=== PATIENT | female | born 1940 | race Caucasian/White ===

== ENCOUNTER 2016-09-18 05:54 | Inpatient (IN) | payer MEDICARE ==
--- NOTE | ~2016-09-18 | CN ---
Consultation Report [facility] [address] [place]. [address] NAME: JEM PEREZ : 42 STATUS : ADM Abhijit PAT#: [id number] AGE: 75 ADM/REG DATE : 09/18/16 MR#: [id number] REPORT SERV DATE: 09/18/16 DICTATED BY: SANDRINE ROSARIO DATE: 09/18/16 REPORT STATUS : Draft TRANSCRIBED BY: MODL DATE: 09/18/16 CARDIOLOGY CONSULTATION DATE OF CONSULTATION: 09/18/2016 REASON FOR CONSULTATION: Elevated troponin and chest pain. HISTORY OF PRESENT ILLNESS: The patient is a 75-year-old female with known coronary artery disease with known chronic total occlusion of the right coronary artery and distal LAD. This has been managed medically for quite some time. The patient initially presented with complaints of dyspnea and substernal chest discomfort. She reports, mild chest discomfort. She reports, she took two nitroglycerin sublingually with resolution of her chest pain symptoms. She had no recurrence of the chest pain since that time. Initially, treated with BiPAP for respiratory failure. The patient is currently undergoing dialysis. She reports that, she has had an increase in dry weight over the last several dialysis sessions due to shortened sessions, due to hypotension. She denies any chest pain over the last several days to weeks. Since her episode of chest discomfort last night, she has had no recurrent chest pain. Serial troponin, 0.59 and 0.47. The patient is moderately active at home on non dialysis days and reports no chest pain with that level of activity. She is currently resting comfortably in the dialysis unit, nasal cannula oxygen undergoing, active hemodialysis without symptoms. PAST MEDICAL HISTORY: 1. Coronary artery disease with most recent cardiac catheterization on 12/17/2014, demonstrated chronic total occlusion of the right coronary artery with occluded distal LAD. 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 2. End-stage renal disease, on hemodialysis. 3. Carotid artery disease - status post left carotid endarterectomy, 11/2012. 4. Ischemic cardiomyopathy with ejection fraction of 30% by echo, 08/31/2015. 5. History of peripheral vascular disease. 6. History of rhabdomyolysis secondary to Zocor. 7. History of cerebrovascular accident. 8. Hypertension. 9. COPD. REVIEW OF SYSTEMS: Negative for all organ systems except per the history of present illness. FAMILY HISTORY: Noncontributory. ALLERGIES: STATINS WITH RHABDOMYOLYSIS AND RENAL FAILURE. HOME MEDICATIONS: Albuterol metered dose inhaler two puffs q.4 hours p.r.n., amlodipine 5 mg b.i.d. every Saturday, Saturday, Saturday, Saturday (non dialysis days), amlodipine 5 mg daily on Consultation Report [address] [id number] NAME: JEM PEREZ : 42 STATUS : ADM Abhijit PAT#: [id number] AGE: 75 ADM/REG DATE : 09/18/16 MR#: [id number] REPORT SERV DATE: 09/18/16 DICTATED BY: SANDRINE ROSARIO DATE: 09/18/16 REPORT STATUS : Draft TRANSCRIBED BY: MANSOOR DATE: 09/18/16 dialysis days (Saturday, , and Saturday), aspirin 81 mg daily, carvedilol 25 mg b.i.d. on non dialysis days and 25 mg at bedtime on dialysis days, Plavix 75 mg daily, Coenzyme Q10 100 mg daily, losartan 50 mg daily, multivitamin with minerals daily, sublingual nitroglycerin 0.4 mg p.r.n. for chest pain, vitamin C, nlmj-cql-mixhjmz garlic supplement and gzfs-tal-rosnhah iron supplement. PHYSICAL EXAMINATION: VITALS: Blood pressure 155/66, pulse 77, respirations 16 and unlabored, saturating 99% on room air, weight 53 kg. GENERAL: Petite elderly female, in no acute distress. HEENT: Normal. NECK: Supple, no JVD or bruit, normal carotid upstroke bilaterally, no thyromegaly. CHEST: Port catheter was noted in the left infraclavicular region, currently undergoing hemodialysis. LUNGS: Clear to auscultation and percussion. No wheezes, rales or rhonchi. No use of accessory muscles. CARDIOLOGY: Regular rhythm, normal S1, S2, no thrill, no murmur, rubs or gallops, normal PMI. ABDOMEN: Bowel sounds positive, soft, nontender, and nondistended. No masses or aortic bruits. No hepatosplenomegaly or hepatojugular reflux. EXTREMITIES: No edema. Normal pulses. No clubbing or cyanosis. SKIN: Warm and dry, no significant rash. NEUROLOGIC: Alert and oriented x3. Appropriate mood. IMAGING: EKG: Poor quality EKG. Sinus rhythm. Left ventricular hypertrophy with repolarization abnormality. EKG unchanged from EKG of 04/09/2016. IMPRESSION: 1. Volume overload-likely multifactorial. Known depressed ejection fraction from ischemic cardiomyopathy and reportedly decreased dialysis times over the last several weeks due to hypotension during dialysis sessions. Medications have been adjusted to attempt to prevent the same in the interim. 2. Demand related/type 2 myocardial infarction - the patient is asymptomatic. Troponin elevation is likely related to increased demand, known coronary artery disease in the setting of increased intravascular volume and respiratory distress. The patient currently dialyzing and stable. Given known coronary anatomy and absence of continued symptoms, I see no indication for cardiac catheterization at this time. We will continue the patient's current cardiac medical therapy. Thank you for the opportunity to see the patient in consultation. We will continue to follow the patient with you. If third troponin is unremarkably change, then we will plan to sign off. For any further questions, please feel free to contact me. Consultation Report [address] [address] NAME: JEM PEREZ : 42 STATUS : ADM Abhijit PAT#: [id number] AGE: 75 ADM/REG DATE : 09/18/16 MR#: [id number] REPORT SERV DATE: 09/18/16 DICTATED BY: SANDRINE ROSARIO DATE: 09/18/16 REPORT STATUS : Draft TRANSCRIBED BY: MODNila DATE: 09/18/16 CSNila/MANSOOR Tk Rosario M.D. / [id number] CC: MD Shawnee Francisco M.D.
--- NOTE | ~2016-09-18 | HP ---
History And Physical [id number] [place]. [address] NAME: JEM HERNÁNDEZ : 42 STATUS : ADM Abhijit PAT#: [id number] AGE: 75 ADM/REG DATE : 09/18/16 MR#: [id number] REPORT SERV DATE: 09/18/16 DICTATED BY: ERICKSON MANUEL DATE: 09/18/16 REPORT STATUS : Draft TRANSCRIBED BY: MODL DATE: 09/18/16 DATE OF ADMISSION: 09/18/2016 HISTORY OF PRESENT ILLNESS: Ms. Hernández is a 75-year-old white female, admitted for shortness of breath, positive troponins, transferred here from [facility] Emergency Room for hemodialysis assistance. She has advanced atherosclerotic cardiovascular disease with bilateral carotid endarterectomies after strokes, coronary artery disease, status post angioplasty and stents, peripheral vascular disease, and bilateral renal artery stenosis, which led to end-stage renal disease, which she is on dialysis on Saturday, , Saturday at [facility], chronic hypertension, hyperlipidemia, COPD, gastroesophageal reflux, and anxiety/depression. REVIEW OF SYSTEMS: [place] some pressure over the last night, no pain, went to the emergency room because of shortness of breath, and found there to be hypoxic as well as volume overloaded and positive troponin, transferred to [facility]. She admits to probably taken in too much fluid over the weekend. We will ultrafilter on dialysis this morning. I have asked Cardiology to see, they have had evaluation of her numerous times and was deemed not a surgical candidate in the past. PHYSICAL EXAMINATION: VITAL SIGNS: Reveals a blood pressure of 162/70, heart rate 67, respirations 20, temperature 97.6, on BiPAP. LUNGS: Clear anteriorly. CARDIOVASCULAR: Without rub. ABDOMEN: Soft, benign. Bowel sounds present. Nontender. No bruits. EXTREMITIES: No edema. NEUROLOGICAL: Intact grossly. Did not ambulate the patient. The patient is on BiPAP, hard to communicate with her. LABORATORY DATA: Shows blood gas, pH 7.37, pCO2 36, PO2 92, 35% FiO2. White count 12.6, hemoglobin 11, hematocrit 36, platelet count 237,000. Sodium 142, potassium 5.2, chloride 106, CO2 22 with a BUN of 70, creatinine 6.99, blood sugar 134, calcium 9.1, magnesium 2.2. INR 1.1. Troponin was initially 0.56, repeat 0.59, we will repeat another one prior to dialysis. Chest x-ray showed mild pulmonary edema, double-lumen catheter in place. ASSESSMENT: 1. Volume overload picture and the patient known to have severe coronary artery disease, an ejection fraction of 30%, elevated troponins noted. Cardiology consulted. Suspect [id number]-[id number] myocardial infarction or stress, troponin leak. Cardiology to evaluate. 2. End-stage renal disease, on hemodialysis Saturday, , Saturday. We will ultrafilter today. 3. Atherosclerotic cardiovascular disease, diffuse with carotid, peripheral, coronary, renal artery stenosis, history of strokes. 4. Hypertension. History And Physical [address] [address] NAME: JEM HERNÁNDEZ : 42 STATUS : ADM Abhijit PAT#: [id number] AGE: 75 ADM/REG DATE : 09/18/16 MR#: [id number] REPORT SERV DATE: 09/18/16 DICTATED BY: ERICKSON MANUEL DATE: 09/18/16 REPORT STATUS : Draft TRANSCRIBED BY: MANSOOR DATE: 09/18/16 5. Chronic obstructive pulmonary disease. 6. Hyperlipidemia. 7. Congestive heart failure with ejection fraction of 30%, chronic systolic heart failure. 8. Anemia of chronic kidney disease. PLAN: Cardiology to evaluate. Hemodialysis this morning and we will hopefully be able to relieve her symptoms and discharge soon. She dialyzes at [facility]. FRANCIE/MANSOOR Erickson Manuel M.D. / [id number] CC: Julio César Roth MD
[~2016-09-18 05:54] MED LIST: *UNABLE1; ADALAT CC90 MG PO; ALBUTEROL INH; APRES25 PO; ARANESP; ARANESP IM; ARANESP100 IV; ASAB PO; ATROVENTUD INH; ATV.5 PO; BETA-CAROTENE PO; BUM2 PO; CALMOSEPTINE O2.5 OZ TOP; CENTRUM PO; CENTRUM TAB1 TAB PO; CO Q-10 OTC PO; COENZYME Q10 PO; COREG PO; COREG25 PO; CORICIDIN HBP PO; COZ50 PO; DEMA20 PO; DIOV80 PO; EUCERIN CREAM TOP; FERROUS SULF325 M1 PO; GARLIC PO; GERI-LANTA PO; IMDUR30 PO; ISORDIL10 PO; L40 PO; LEVAQUIN750 MG PO; LORTAB 5 PO; LOSARTAN; MAGOX4 PO; MELA3 PO; MELATONIN CR3 MG PO; MELATONIN PO; MONOKET PO; MUCINEX1200 MG PO; MUCINEX600 MG PO; MULTIPLE VIT PO; MULTIVIT/MIN PO; MULTIVITAMI1 PO; NIFEDIAC CC90 MG PO; NITROSTAT0.4 MG SL; NORCO1 TA1 PO; NORV5 PO; NXL9 PO; ORGAN-I NR200 MG PO; P10 PO; PLAVIX PO; PRILOSEC40 MG PO; PROAIR HFA INH; PROTONIX PO; PROVENTSOL INH; SENTAB PO; SPIRO25 PO; SPIRO50 PO; T PO; VITAMIN C100 M1 PO; VITAMINS/SUPPLEMENTS PO; VITC500 PO; ZINC220C PO; ZOFRAN4 SL; [UNRECOGNIZED DRUG - OTHER] TOP; [UNRECOGNIZED DRUG - REMARK] PO
[2016-09-18 06:51] LABS: BE (BASE EXCESS) -4.1 MEQ/L (0 +/- 2.5); HCO3 (ACTUAL BICARBONATE) 20.5 MEQ/L (23-27); HEMOBLOGIN CONTENT 12.3 G/DL (12-16); INSTRUMENT SERIAL # 11843; METHEMOGLOBIN 0.3 % (0-3); O2 CONTENT 16.5 VOL% (18-24); PCO2 (CO2 TENSION) 36 MMHG (35-45); PO2 (O2 TENSION) 92 MMHG (79-93); SAMPLE Arterial; pH 7.37 (7.37-7.43)
[2016-09-19 04:42] LABS: BASOPHILS 0 %; EOSINOPHILS 0.1 %; EOSINOPHILS ABSOLUTE 0.01 10/3/uL (0.0-0.53); HEMATOCRIT 34.5 % (36.0-48.0); HEMOGLOBIN 11.3 g/dL (12.0-16.0); IMMATURE GRANULOCYTES 0.3 %; IMMATURE GRANULOCYTES ABSOLUTE 0.02 10/3/uL (0.0-0.11); LYMPHOCYTES 9.4 %; LYMPHOCYTES ABSOLUTE 0.72 10/3/uL (0.67-4.30); MEAN CORPUS HGB CONC 32.8 g/dL (32.0-36.0); MEAN CORPUSCULAR HEMOGLOB 33.8 pg (26.0-34.0); MEAN CORPUSCULAR VOLUME 103.3 fL (80-100); MEAN PLATELET VOLUME 11.1 fL (9.2-13.0); MONOCYTES 8.2 %; MONOCYTES ABSOLUTE 0.63 10/3/uL (0.21-1.20); NEUTROPHILS ABSOLUTE 6.31 10/3/uL (2.02-8.40); PLATELET COUNT 167 10/3/uL (150-400); RBC DISTRIBUTION WIDTH 15.8 % (12.0-16.0); RED CELL COUNT 3.34 10/6/uL (4.0-5.6); WHITE BLOOD CELLS 7.7 10/3/uL (4.5-10.5)
[2016-09-19 04:43] LABS: MANUAL DIFF NO %
[2016-09-19 05:14] LABS: ALBUMIN 3.5 G/DL (3.5-5.0); CALCIUM, SERUM 9.6 MG/DL (8.5-10.4); CHLORIDE, SERUM 104 MMOL/L (96-112); CO2 (CARBON DIOXIDE) 26 MMOL/L (24-34); GFR AFRICAN AMERICAN 9 ML/MIN (>=60); GFR NON AFRICAN AMERICAN 8 ML/MIN (>=60); GLUCOSE, SERUM 118 MG/DL (60-99); PHOSPHORUS, SERUM 4.5 MG/DL (2.5-4.5); POTASSIUM, SERUM 4.8 MMOL/L (3.5-5.3); SODIUM, SERUM 140 MMOL/L (135-148)
[2016-09-19 05:17] LABS: BUN (BLOOD UREA NITROGEN) 45 MG/DL (6-23)
[2016-09-19] MEDS ORDERED: SPIRO25 PO (11:26)
[2016-09-19] MEDS ORDERED: GARLIC SUPPLEMENT PO (11:38)
[2016-09-19] MEDS ORDERED: NORV5 PO ×2 (11:38)
[2016-09-19] MEDS ORDERED: ASAB PO (11:38)
[2016-09-19] MEDS ORDERED: COZ50 PO (11:38)
[2016-09-19] MEDS ORDERED: VITAMIN C OTC PO (11:38)
[2016-09-19] MEDS ORDERED: CO Q-10100 MG (11:38)
[2016-09-19] MEDS ORDERED: NITROSTAT0.4 MG SL (11:38)
[2016-09-19] MEDS ORDERED: COREG25 PO ×2 (11:38)
[2016-09-19] MEDS ORDERED: VENTOLIN HFA INH (11:38)
[2016-09-19] MEDS ORDERED: PLAVIX PO (11:38)
[2016-09-19] MEDS ORDERED: IRON SUPPLEMENT OTC PO (11:38)
[2016-09-20 07:55] LABS: BASOPHILS 0.3 %; BASOPHILS ABSOLUTE 0.02 10/3/uL (0.0-0.16); EOSINOPHILS 3.6 %; EOSINOPHILS ABSOLUTE 0.26 10/3/uL (0.0-0.53); HEMATOCRIT 33.8 % (36.0-48.0); HEMOGLOBIN 10.9 g/dL (12.0-16.0); IMMATURE GRANULOCYTES 0.3 %; IMMATURE GRANULOCYTES ABSOLUTE 0.02 10/3/uL (0.0-0.11); LYMPHOCYTES 28.3 %; LYMPHOCYTES ABSOLUTE 2.02 10/3/uL (0.67-4.30); MEAN CORPUS HGB CONC 32.2 g/dL (32.0-36.0); MEAN CORPUSCULAR HEMOGLOB 33.3 pg (26.0-34.0); MEAN CORPUSCULAR VOLUME 103.4 fL (80-100); MEAN PLATELET VOLUME 11.3 fL (9.2-13.0); MONOCYTES 9.7 %; MONOCYTES ABSOLUTE 0.69 10/3/uL (0.21-1.20); NEUTROPHILS 57.8 %; NEUTROPHILS ABSOLUTE 4.14 10/3/uL (2.02-8.40); PLATELET COUNT 167 10/3/uL (150-400); RBC DISTRIBUTION WIDTH 15.9 % (12.0-16.0); RED CELL COUNT 3.27 10/6/uL (4.0-5.6); WHITE BLOOD CELLS 7.2 10/3/uL (4.5-10.5)
[2016-09-20 08:00] LABS: MANUAL DIFF NO %
[2016-09-20 08:06] LABS: ALBUMIN 3.1 G/DL (3.5-5.0); CALCIUM, SERUM 8.9 MG/DL (8.5-10.4); CHLORIDE, SERUM 104 MMOL/L (96-112); CO2 (CARBON DIOXIDE) 24 MMOL/L (24-34); PHOSPHORUS, SERUM 5.2 MG/DL (2.5-4.5); POTASSIUM, SERUM 4.7 MMOL/L (3.5-5.3); SODIUM, SERUM 140 MMOL/L (135-148)
[2016-09-20 08:07] LABS: BUN (BLOOD UREA NITROGEN) 83 MG/DL (6-23); CREATININE 6.37 MG/DL (0.55-1.02); GFR AFRICAN AMERICAN 7 ML/MIN (>=60); GFR NON AFRICAN AMERICAN 6 ML/MIN (>=60); GLUCOSE, SERUM 83 MG/DL (60-99)
[2016-09-30] MEDS ORDERED: CENTRUM PO (13:25)
== END 2016-09-20 15:42 | disposition home or self-care (01) | DRG 189 ==
LOC: MIC 05:54
PROVIDERS: Internal Medicine Nephrology
PROC: 5A1D60Z (ICD-10-PCS; principal; 2016-09-18)
DX: J96.01 Acute respiratory failure with hypoxia (principal); I13.2 Hypertensive heart and chronic kidney disease with heart failure and with stage 5 chronic kidney disease, or end stage renal disease; N18.6 End stage renal disease; M62.82 Rhabdomyolysis; I50.32 Chronic diastolic (congestive) heart failure; I25.5 Ischemic cardiomyopathy; E87.70 Fluid overload, unspecified; I25.10 Atherosclerotic heart disease of native coronary artery without angina pectoris; I73.9 Peripheral vascular disease, unspecified; J44.9 Chronic obstructive pulmonary disease, unspecified; E78.5 Hyperlipidemia, unspecified; D63.1 Anemia in chronic kidney disease; I25.2 Old myocardial infarction; Z99.2 Dependence on renal dialysis; Z86.73 Personal history of transient ischemic attack (TIA), and cerebral infarction without residual deficits; Z88.8 Allergy status to other drugs, medicaments and biological substances; Z79.82 Long term (current) use of aspirin; Z79.899 Other long term (current) drug therapy; Z79.02 Long term (current) use of antithrombotics/antiplatelets; F17.210 Nicotine dependence, cigarettes, uncomplicated
CPT/HCPCS: 36600; 71010; 80048; 80069; 82805; 83735; 84484; 85025; 85610; 85730; 87040; 93005; 94640; 94660; 96374; 99291; A9270-GY; G0257; J2930; J2997; P9047

== ENCOUNTER 2016-09-30 17:00 | Inpatient (IN) | payer MEDICARE ==
--- NOTE | ~2016-09-30 | CN ---
Consultation Report [facility] [address] [place]. 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 She has some degree of volume overload, as well, due to her chronic kidney disease for which she is on hemodialysis regimen. Besides her surgeries for AV fistulas that were nonfunctional, she has had catheter placement for dialysis. Other surgeries included bilateral carotid endarterectomies. She has known coronary artery disease, but no stenting or bypass grafting, and sees Dr. Mansfield as her primary care provider. She has no chest pain, but her troponin is elevated at 2.61 x 1. Her EKG shows incomplete left bundle branch block with associated ST-T wave changes. She is in sinus rhythm. Her saturation at home was 88%, and she has been actively wheezing. Her BUN is 69 with a creatinine of 8.8; she missed her dialysis yesterday. Potassium 5.0. Platelet count 203,000, white blood cell count 11,800, and hematocrit 54%. Her B-type natriuretic peptide is over 5000. She has a history of hypertension, but not known to be diabetic. FAMILY HISTORY: Positive for heart disease. ALLERGIES: SHE IS INTOLERANT TO STATIN AGENTS. SOCIAL HISTORY: This lady is a and has four healthy children. HOME MEDICATIONS: Multiple, as would be expected including Coenzyme Q10, losartan, multivitamins, spironolactone, iron, and vitamin C. REVIEW OF SYSTEMS: At the present time, she is reasonably comfortable except for the active wheezing. She is not orthopneic or having chest pain. PHYSICAL EXAMINATION: VITAL SIGNS: Blood pressure is 120/70. HEENT: Head is normocephalic. Eyes are PERRLA. Nose had no epistaxis. SKIN: Clear of ulcerations. She is a thin person. NECK: Supple. There is no jugular venous distention. LUNGS: Have bilateral expiratory wheezing and some decrease in breath sounds compatible with her COPD with bronchospasm. HEART: Had regular rhythm. Normal S1, S2. I do not hear a definite murmur. ABDOMEN: Benign. Nontender. No hepatosplenomegaly or abnormal masses. EXTREMITIES: Had no clubbing, edema, or cyanosis. Consultation Report [address] [place]. [address] NAME: JEM PEREZ : 42 STATUS : ADM IN PAT#: [id number] AGE: 75 ADM/REG DATE : 09/30/16 MR#: [id number] REPORT SERV DATE: 09/30/16 DICTATED BY: PAVEL BUI DATE: 09/30/16 REPORT STATUS : Draft TRANSCRIBED BY: MANSOOR DATE: 09/30/16 NEUROLOGIC: Intact. Oriented to time, place, and person. CLINICAL IMPRESSIONS: 1. Chronic kidney disease - on hemodialysis with volume overload. 2. Elevated troponin - possibly a troponin type 2 spill; serial numbers are pending; no chest pain. 3. Status post carotid endarterectomies. 4. Chronic obstructive pulmonary disease with active bronchospasm. 5. Coronary artery disease. RECOMMENDATIONS: 1. We will obtain serial troponins and if is similar level, I would suspect this is a type 2 spill with multiple comorbidities with significant renal disease on hemodialysis, which can cause this type of elevation. 2. Bronchodilator regimen for her active wheezing. Further recommendations to follow clinical course. RB/MANSOOR Pavel Bui M.D. / [id number] CC: Iván Meneses M.D. UNKNOWN
--- NOTE | ~2016-09-30 | HP ---
History And Physical [address] [facility] [place]. [address] NAME: JEM PEREZ : 42 STATUS : ADM IN PAT#: [id number] AGE: 75 ADM/REG DATE : 09/30/16 MR#: [id number] REPORT SERV DATE: 10/01/16 DICTATED BY: DHAVAL CALVILLO DATE: 09/30/16 REPORT STATUS : Draft TRANSCRIBED BY: MODL DATE: 09/30/16 DATE OF ADMISSION: 09/30/2016 RENAL H AND P CHIEF COMPLAINT: Regarding end-stage renal disease. HISTORY OF PRESENT ILLNESS: A 75-year-old white female with end-stage renal disease, hemodialysis, Saturday, , Saturday at [facility], left upper extremity AV fistula; COPD, on home O2 with ongoing tobacco use; ischemic cardiomyopathy, EF of 30%; peripheral vascular disease who missed hemodialysis Saturday due to nausea and low back pain, who present to [facility] with hypoxia, leukocytosis, increased BNP, and pulmonary edema. The patient subsequently transferred to [facility]. She was also noted to have an elevated troponin of over 2. Cardiology was subsequently consulted as a result. The patient currently stable, feels better than upon initial presentation. Currently, on 6 L nasal cannula with 98% O2 sats. Denies any chest pain at this time. Minimal cough with chronic sputum production. PAST MEDICAL HISTORY: 1. End-stage renal disease. Hemodialysis Saturday, , Saturday at [facility], left arm AV fistula. 2. Ischemic cardiomyopathy, ejection fraction 30%. 3. COPD on O2 with ongoing tobacco use. 4. Hypertension. 5. Peripheral vascular disease with bilateral carotid endarterectomies. 6. History of CVA with left-sided numbness. 7. Anxiety. 8. Depression. MEDICATIONS ON ADMISSION: Include albuterol MDI; amlodipine 5 mg b.i.d. on nondialysis days and 5 mg on dialysis days; aspirin 81 mg daily; Coreg 25 mg b.i.d. on nondialysis days, 25 mg at bedtime on dialysis days; Plavix 75 mg daily; CoQ10; losartan 50 mg daily; multivitamin daily; Aldactone; sublingual nitroglycerin p.r.n.; iron sulfate; vitamin C over the-counter. ALLERGIES: INCLUDE STATINS CAUSES KIDNEYS TO SHUT DOWN. SOCIAL HISTORY: Lives alone. Has children who are active in her care. Her son is healthcare [id number]. Positive tobacco use, half a pack per day. No alcohol or illicit drug use. FAMILY HISTORY: No history of renal diseases other than grandmother with kidney disease, but no dialysis. REVIEW OF SYSTEMS: Negative except as mentioned in HPI. History And Physical [address] [place]. [address] NAME: JEM PEREZ : 42 STATUS : ADM IN PAT#: [id number] AGE: 75 ADM/REG DATE : 09/30/16 MR#: [id number] REPORT SERV DATE: 10/01/16 DICTATED BY: DHAVAL CALVILLO DATE: 09/30/16 REPORT STATUS : Draft TRANSCRIBED BY: MANSOOR DATE: 09/30/16 PHYSICAL EXAMINATION: VITAL SIGNS: Temperature is 97.7, blood pressure 140/64, pulse 67, respiratory rate is 18. GENERAL: Well-developed elderly white female in no acute distress. HEENT: Normocephalic and atraumatic. Pupils are equal, round, and reactive to light. Mucous membranes are moist. NECK: Supple. No thyromegaly. CARDIOVASCULAR: Regular rate and rhythm. No murmurs appreciated. RESPIRATORY: Bilateral wheezes with scattered rhonchi. Decreased breath sounds at bases. Normal respiratory effort. ABDOMEN: Soft, nontender, and nondistended. Positive bowel sounds. EXTREMITIES: No clubbing, cyanosis, with trace edema of the lower extremities bilaterally. Left upper extremity AV fistula, positive bruit and thrill. SKIN: No rashes or ulcerations appreciated. NEURO: Moves all extremities well. No focal deficits. Normal sensation in all extremities. PSYCH: Oriented x3 with normal affect. LABORATORY DATA: Sodium 140, potassium 4.0, chloride 101, bicarb 25, BUN 69, creatinine 8.8, glucose is 109, calcium is 9.4, magnesium is 2.3, phosphorus 5.2, and albumin is 3.1. BNP is greater than 5000. White count 11.8, 82 segs, 10 lymphs, 6 monos, hemoglobin is 10.7, and platelet count is 203. Troponin 2.61. ASSESSMENT AND PLAN: 1. End-stage renal disease. Hemodialysis at [facility]: Saturday, , Saturday; missed hemodialysis yesterday. Plans for hemodialysis first shift, Saturday. 2. Acute on chronic obstructive pulmonary disease exacerbation without any significant pulmonary reserve. Maintain O2 sats with oxygen. Check sputum culture, nebulize protocol steroids. Levaquin empirically for elevated white count and pulmonary eval. 3. Increased troponin, could be demand ischemia versus [id number] myocardial infarction. Appreciate Cardiology evaluation, currently on heparin drip. 4. Ischemic cardiomyopathy with EF of 30%. 5. History of peripheral vascular disease with cerebrovascular accident, left-sided numbness, and bilateral CEAs. 6. Prophylaxis SCDs. 7. Resume home medications. NCP/MODL Dhaval Calvillo M.D. / [id number] CC: Adrian Mansfield M.D.
[~2016-09-30 17:00] MED LIST changes: +CO Q-10100 MG; +GARLIC SUPPLEMENT PO; +IRON SUPPLEMENT OTC PO; +VENTOLIN HFA INH; +VITAMIN C OTC PO
[2016-10-01 13:59] LABS: BASOPHILS 0 %; EOSINOPHILS 0 %; HEMOGLOBIN 9.5 g/dL (12.0-16.0); IMMATURE GRANULOCYTES 0.3 %; IMMATURE GRANULOCYTES ABSOLUTE 0.03 10/3/uL (0.0-0.11); LYMPHOCYTES 4.6 %; LYMPHOCYTES ABSOLUTE 0.45 10/3/uL (0.67-4.30); MEAN CORPUSCULAR HEMOGLOB 33.9 pg (26.0-34.0); MEAN PLATELET VOLUME 11.8 fL (9.2-13.0); MONOCYTES 2.3 %; MONOCYTES ABSOLUTE 0.22 10/3/uL (0.21-1.20); NEUTROPHILS 92.8 %; NEUTROPHILS ABSOLUTE 9.01 10/3/uL (2.02-8.40); PLATELET COUNT 169 10/3/uL (150-400); WHITE BLOOD CELLS 9.7 10/3/uL (4.5-10.5)
[2016-10-01 14:02] LABS: HEMATOCRIT 28.1 % (36.0-48.0); MANUAL DIFF NO %; MEAN CORPUS HGB CONC 33.8 g/dL (32.0-36.0); MEAN CORPUSCULAR VOLUME 100.4 fL (80-100)
[2016-10-01 14:16] LABS: ALBUMIN 2.7 G/DL (3.5-5.0); BUN (BLOOD UREA NITROGEN) 93 MG/DL (6-23); CALCIUM, SERUM 8.5 MG/DL (8.5-10.4); CHLORIDE, SERUM 97 MMOL/L (96-112); CO2 (CARBON DIOXIDE) 23 MMOL/L (24-34); CREATININE 8.84 MG/DL (0.55-1.02); GFR AFRICAN AMERICAN 5 ML/MIN (>=60); GFR NON AFRICAN AMERICAN 4 ML/MIN (>=60); GLUCOSE, SERUM 116 MG/DL (60-99); PHOSPHORUS, SERUM 6.4 MG/DL (2.5-4.5); POTASSIUM, SERUM 5.6 MMOL/L (3.5-5.3); SODIUM, SERUM 137 MMOL/L (135-148)
[2016-10-02] MEDS ORDERED: P10 (17:01)
[2016-10-02] MEDS ORDERED: LEVAQUIN750 MG (17:02)
== END 2016-10-02 18:05 | disposition home or self-care (01) | DRG 291 ==
LOC: 2SO 17:00
PROVIDERS: Internal Medicine Nephrology
PROC: 5A1D60Z (ICD-10-PCS; principal; 2016-10-01)
DX: I13.2 Hypertensive heart and chronic kidney disease with heart failure and with stage 5 chronic kidney disease, or end stage renal disease (principal); J96.01 Acute respiratory failure with hypoxia; N18.6 End stage renal disease; I24.8 Other forms of acute ischemic heart disease; I69.354 Hemiplegia and hemiparesis following cerebral infarction affecting left non-dominant side; J44.1 Chronic obstructive pulmonary disease with (acute) exacerbation; I50.9 Heart failure, unspecified; E87.5 Hyperkalemia; Z99.81 Dependence on supplemental oxygen; I25.5 Ischemic cardiomyopathy; I73.9 Peripheral vascular disease, unspecified; F41.9 Anxiety disorder, unspecified; F32.9 Major depressive disorder, single episode, unspecified; I25.10 Atherosclerotic heart disease of native coronary artery without angina pectoris; J98.01 Acute bronchospasm; I44.7 Left bundle-branch block, unspecified; F17.210 Nicotine dependence, cigarettes, uncomplicated; R79.89 Other specified abnormal findings of blood chemistry; Z99.2 Dependence on renal dialysis; Z86.73 Personal history of transient ischemic attack (TIA), and cerebral infarction without residual deficits; Z82.49 Family history of ischemic heart disease and other diseases of the circulatory system; Z84.1 Family history of disorders of kidney and ureter; Z88.8 Allergy status to other drugs, medicaments and biological substances; Z91.15 Patient's noncompliance with renal dialysis; I25.2 Old myocardial infarction; Z79.82 Long term (current) use of aspirin; Z79.899 Other long term (current) drug therapy
CPT/HCPCS: 36600; 71020; 80048; 80069; 82805; 83735; 83880; 84484; 85025; 85610; 85730; 87070; 87205; 94640; 96365; 96366; 96375; 99291; A9270-GY; G0257; J0885; J1956; J2920; J2930; J2997

== ENCOUNTER 2016-10-09 06:40 | Inpatient (IN) | payer MEDICARE ==
--- NOTE | ~2016-10-09 | DS ---
Discharge Summary [facility] [address] [facility] [place]. [address] NAME: JEM PEREZ : 42 STATUS : DIS IN PAT#: [id number] AGE: 75 ADM/REG DATE : 10/10/16 MR#: [id number] REPORT SERV DATE: 10/24/16 DICTATED BY: KG MARIA JR DATE: 10/23/16 REPORT STATUS : Draft TRANSCRIBED BY: MANSOOR DATE: 10/23/16 Data Collection from hospitalization DISCHARGE DIAGNOSES: 1. Acute liver/transaminitis. 2. Hyperkalemia. 3. Pleural effusion. 4. Vascular congestion. 5. Positive shortness of breath. 6. Hyponatremia. 7. Positive anion gap metabolic acidosis. 8. Hyperphosphatemia. 9. Hypotension - Crestor dependent. 10.New thrombocytopenia. 11.Chronic obstructive pulmonary disease. 12.Inoperable atherosclerotic cardiovascular disease. 13.Recurrent/ongoing tobacco. 14.End-stage renal disease. 15.Hypoxemia. 16.Ischemic cardiomyopathy. 17.Peripheral vascular disease. 18.History of prior cerebrovascular accident with left-sided numbness. 19.Anxiety and depression. CONSULTATIONS: 1. Carlos Eduardo Padilla MD. 2. Mitra Herrera M.D. PROCEDURES PERFORMED: CTA of the chest on 10/10/2016. DISPOSITION: [facility]. HOSPITAL COURSE: This was a 75-year-old female who was brought to the hospital by EMS after complaining of dizziness. It was stated that in the field she was bradycardic and treated with atropine. She was chronically on a beta-addy as part of her known cardiovascular disease management. She had chronic trouble with low back pain, diagnosed elsewhere. She declined narcotic use because she does not like the way she feels taking the narcotics and she just deals with the pain. She said that she had an acute exacerbation of her chronic back pain on the day prior to this admission and thereafter she experienced some dizziness. She had end-stage renal disease. She was treated on Saturday, , and Saturday schedule. She was at the hospital a week prior to this admission and was treated for what appeared to be fluid overload, but we could not confirm that her dry weight was lowered nor that any of her antihypertensives were reduced at the time of her discharge. She had end- stage renal disease. In hospital, she was now hypotensive and bradycardic with a heart rate less than 60, but she was fully awake and alert, cooperative and was in no distress. She was admitted to the hospital for further evaluation and treatment. Upon admission, liver function tests were satisfactory. Troponin was found to be 0.5. It Discharge Summary [facility] [address] [facility] [address] NAME: JEM PEREZ : 42 STATUS : DIS IN PAT#: [id number] AGE: 75 ADM/REG DATE : 10/10/16 MR#: [id number] REPORT SERV DATE: 10/24/16 DICTATED BY: KG MARIA JR DATE: 10/23/16 REPORT STATUS : Draft TRANSCRIBED BY: MANSOOR DATE: 10/23/16 was felt that her hypotension was probably at least in part mediated by volume status and vasodilating blood pressure drugs and bradycardia. She had had prior long-term documentation of elevated BNP values. She was seen in consultation by Dr. Carlos Eduardo Padilla regarding back pain, symptomatic bradycardia, and hypotension in a patient with known ischemic cardiomyopathy. The patient reported that her lightheadedness had improved. She was on carvedilol at home at a relatively high dose. At this time, she denied any significant chest pain. She does have chronic dyspnea due to advanced chronic obstructive pulmonary disease, but reported that this was at baseline with no worsening of her chronic dyspnea. Carvedilol was going to be held at this time. It would most likely be restarted at a reduced dose. Her back pain had resolved at this time and it was felt this may have been related to her symptomatic hypotension. The patient's coronary angiogram was reviewed. She does in fact have very advanced coronary heart disease with poor targets for either percutaneous coronary intervention or coronary artery bypass graft surgery at the time of her last catheterization in late 2014. Provided that her symptoms remained stable, it was felt that the risk of repeat coronary angiography probably exceeds the benefit. If the patient does not exhibit hemodynamic or electrical instability or had symptoms suggestive of refractory angina, we would consider repeat coronary angiography. She was strongly encouraged to stop smoking due to her advanced chronic obstructive pulmonary disease and advanced coronary heart disease. She seemed to poorly motivated to do this, however. Orthostatic blood pressures were checked. On 10/10/2016, she remained short of breath. She was on BiPAP. Her heart rate had improved into the 60s-70s. A CTA of the chest was performed. Coumadin was on hold. Volume removal would be performed as tolerated with hemodialysis. Plavix was being held. She was seen by Dr. Mitra Herrera. She had been to see the patient regarding increasing shortness of breath and hypoxia. She did require BiPAP overnight. Her chest x-ray had shown cardiomegaly, small left pleural effusion, and pulmonary vascular congestion. Troponin was 0.054. Creatinine was 6.89 and potassium was 4.8. She never had a formal evaluation of her lung status, which at some point would probably have to be done once she was stabilized. We would continue bronchodilator protocol. She was again encouraged to stop smoking. Previous echocardiogram had shown ejection fraction of 30%. Repeat echocardiogram was requested. It was felt that the patient may be end stage on her pulmonary disease. It was felt that BiPAP may be something she could use at home, but we would need to further evaluate that after her volume status had stabilized and she was at baseline. The patient herself said she does not use oxygen and uses her rescue inhaler very infrequently. On 10/11/2016, dialysis therapy continued. Stool was found to be Hemoccult positive. Hypotension/bradycardia had resolved. Coreg had been stopped. Aggressive dialysis was going to be continued. BiPAP was to be used as needed. Blood pressure was under better control on Midrin. The next day, she felt much better. She had no complaints of dyspnea. Her spirits were good. We were going to reintroduce low-dose beta-addy. On 10/13/2016, she developed an acute new rhythm disturbance during hemodialysis. IV fluid bolus was given. EKG revealed atrial fibrillation with rapid ventricular response. She also had hyperkalemia. Hemodialysis therapy had been performed. She had no complaints of chest pain. A PICC line was inserted. Her shortness of breath was much improved. Chest x-ray showed bilateral pleural effusions. There was some improvement in her congestion. She complained of fatigue. She felt like her heart was pounding. She denied chest pain or shortness of breath. Esmolol drip was going to be started. Coreg had been restarted and Discharge Summary [address] [place]. [address] NAME: JEM PEREZ : 42 STATUS : DIS IN PAT#: [id number] AGE: 75 ADM/REG DATE : 10/10/16 MR#: [id number] REPORT SERV DATE: 10/24/16 DICTATED BY: KG MARIA JR DATE: 10/23/16 REPORT STATUS : Draft TRANSCRIBED BY: MANSOOR DATE: 10/23/16 was increased. The next day, she was hypotensive. The patient was found to have bradycardia with heart rate around 45 - apparent conjunction escape. She denied chest pain. She still felt fatigued. She had an expiratory wheeze. She was in bradycardia/shock. She had received phenylephrine. Levophed was going to began. Kayexalate had been given. Amiodarone and Coreg were held secondary to bradycardia - arrhythmia. It was felt that she may ultimately need a permanent pacemaker. She was off amiodarone and dopamine. It was felt that if her volume overload and pleural effusion did not improve she may need thoracentesis. Plavix was on hold. Her potassium level increased further. She had further respiratory difficulty. On 10/15/2016, her liver function tests had increased. She was in atrial fibrillation with rapid ventricular response. Amiodarone was resumed. She was felt to have acute liver/transaminitis. Amiodarone was stopped. Her condition remained quite guarded. She was short of breath with any exertion. Creatinine was 3.36. She had increased O2 needs with high flow O2. Troponin had increased to 3.09. Her code status was discussed with her family. They understood the severity of her condition. Comfort care was going to be provided per the wishes of her family. Her condition continued to decline. Later that afternoon, she was found without blood pressure, pulse, or respirations. She was pronounced at 1:53 p.m. and released to the above-mentioned home. Information collected by: Ale Campbell I submit the above information as my discharge summary. TG/MODNila Kg Maria Jr, M.D. / [id number] CC: Katerine Daniels M.D. Shawnee Willis M.D. Carlos Eduardo Padilla MD
--- NOTE | ~2016-10-09 | CN ---
Consultation Report [facility] [address] [place]. [address] NAME: JEM HERNÁNDEZ : 42 STATUS : ADM IN PAT#: [id number] AGE: 75 ADM/REG DATE : 10/09/16 MR#: [id number] REPORT SERV DATE: 10/09/16 DICTATED BY: ANAYA PADILLA DATE: 10/09/16 REPORT STATUS : Draft TRANSCRIBED BY: MODL DATE: 10/09/16 CARDIOLOGY CONSULTATION DATE OF CONSULTATION: 10/09/2016 REASON FOR CONSULTATION: Back pain, symptomatic bradycardia, and hypotension in a 75-year- old woman with known ischemic cardiomyopathy. HISTORY OF PRESENT ILLNESS: Ms Hernández is a 75-year-old woman who is a patient of Dr. Mansfield. The patient has known ischemic cardiomyopathy with advanced coronary heart disease, which is felt to be nonintervenable. The patient was recently hospitalized at [facility] for a COPD exacerbation. During that hospitalization, she did experience significant increases in her serum troponin I with a maximum of approximately 10. This was felt to be due to a combination of demand ischemia and end-stage renal disease. It was felt that the patient would not benefit from cardiac catheterization at that time. She has been managed medically. The patient was discharged to home approximately one week ago. Apparently, she was experiencing several days of loose stool and difficulty sleeping. The patient has had back pain which has prevented her from sleeping well. She eventually called emergency medical services due to symptoms of back pain associated with dizziness and lightheadedness. The patient was found to have relatively low heart rate and blood pressure at the time of her initial evaluation, with a blood pressure of approximately 91/33 mmHg. The patient's heart rate was apparently in the low 50s. She was given atropine en route to the hospital. At this time, the patient reports that her lightheadedness has improved. The patient is on carvedilol at home at a relatively high dose of 25 mg twice daily, with 25 mg nightly only on the days of her dialysis. At this time, the patient denies any significant chest pain. She has chronic dyspnea due to advanced chronic obstructive pulmonary disease, but reports that this is at baseline with no worsening of her chronic dyspnea. PAST MEDICAL HISTORY: 1. Ischemic cardiomyopathy with baseline ejection fraction of 30%. 2. Coronary artery disease with chronic total occlusion of the distal portion of the mid LAD and total occlusion of the distal portion of the proximal right coronary artery with [id number] collaterals. 3. Oxygen-dependent COPD. 4. Peripheral arterial disease involving the carotid arteries. 5. End-stage renal disease. 6. History of stroke with residual left-sided deficit. 7. Anxiety. 8. Depression. PAST SURGICAL HISTORY: Significant for: 1. Multiple AV fistula placements, all of which has failed. The patient has had a recent Consultation Report [address] [place]. [address] NAME: JEM HERNÁNDEZ : 42 STATUS : ADM IN PAT#: [id number] AGE: 75 ADM/REG DATE : 10/09/16 MR#: [id number] REPORT SERV DATE: 10/09/16 DICTATED BY: ANAYA PADILLA DATE: 10/09/16 REPORT STATUS : Draft TRANSCRIBED BY: MANSOOR DATE: 10/09/16 Vas-Cath placed for hemodialysis access. 2. Bilateral carotid endarterectomies. FAMILY HISTORY: Positive for coronary heart disease and otherwise noncontributory. SOCIAL HISTORY: The patient continues to smoke cigarettes. She is a , with four healthy children. She has no history of alcohol use. ALLERGIES: THE PATIENT IS APPARENTLY INTOLERANT OF STATIN DRUGS. SHE REPORTS NO OTHER MEDICATION ALLERGIES. HOME MEDICATIONS: 1. Albuterol inhaler two puffs every four hours as needed for dyspnea. 2. Albuterol nebulizer treatments daily as needed. 3. Norvasc 5 mg p.o. daily q. Saturday, , and Saturday and 5 mg twice daily on Saturday, Saturday, Saturday, and Saturday. 4. Aspirin 81 mg daily. 5. Carvedilol 25 mg twice daily on Saturday, Saturday, Saturday, and Saturday and 25 mg at bedtime Saturday, , and Saturday. 6. Plavix 75 mg daily. 7. Coenzyme Q10 of 100 mg daily. 8. Levofloxacin x1 dose 750 mg. 9. Losartan 50 mg p.o. daily. 10.Multivitamin one tablet daily. 11.Sublingual nitroglycerin 0.4 mg as needed for chest pain. 12.Prednisone taper. 13.Aldactone 12.5 mg q. Saturday, Saturday, Saturday, and Saturday. 14.Garlic supplement 1 g daily. 15.Nezb-oqo-wnwkubx iron supplement one tablet daily. 16.Vitamin C one tablet daily. REVIEW OF SYSTEMS: A 12-system review was performed. This is noncontributory, except for the pertinent positives and negatives noted in the history of present illness above. PHYSICAL EXAMINATION: VITAL SIGNS: Temperature is 97.4 degrees Fahrenheit, blood pressure is currently 110/65 mmHg, heart rate is 59 to 66 beats per minute and regular, respirations 15, oxygen saturation is 96% on 2 L nasal cannula. GENERAL: The patient is an underweight chronically ill-appearing white woman, who is in no acute distress. EYES: PERRL, EOMI, clear conjunctiva. HEAD/MNT: NCAT with moist mucous membranes and grossly normal hard and soft palate. NECK: Supple with no obvious thyromegaly or lymphadenopathy CARDIOVASCULAR: Distant heart sounds. There is a regular rhythm with a normal S1 and a Consultation Report [address] [address] NAME: JANINE HERNÁNDEZJOHN CABRAL : 44 STATUS : ADM IN [facility]#: [id number] AGE: 75 ADM/REG DATE : 10/09/16 MR#: [id number] REPORT SERV DATE: 10/09/16 DICTATED BY: ANAYA PADILLA DATE: 10/09/16 REPORT STATUS : Draft TRANSCRIBED BY: MANSOOR DATE: 10/09/16 physiologically split second heart sound. The jugular venous pressure appears grossly normal at this time. PULMONARY: Globally decreased air movement with prolonged expiratory phase. Otherwise, clear to auscultation with no wheezing, rales, or rhonchi noted. ANTERIOR CHEST WALL: A hemodialysis catheter is noted in the subclavian position on the left. The dressing is clean, dry, and intact. ABDOMINAL: Soft, non-tender, non-distended with no hepatosplenomegaly noted. EXTREMITIES: There is trace ankle edema with no clubbing or cyanosis. MUSCULOSKELETAL: Grossly normal strength and range of motion in all extremities INTEGUMENTARY: Skin appears intact with no bruises, wounds or active lesions noted NEURO/PSYC: Alert and oriented x3, with no dysarthria, facial droop or lateralizing weakness noted. STUDIES: 12-lead EKG: The 12-lead EKG shows normal sinus rhythm with Q-waves in leads V1 through V3 consistent with anteroseptal myocardial infarction. There is low voltage in the limb leads. There are nonspecific ST/T-wave abnormalities. LABORATORY DATA: Sodium is 140, potassium 4.8, chloride is 101, BUN is 86, creatinine is 6.9, glucose 105, calcium 7.7, magnesium 2.0. Cell count show a white blood cell count of 9.7, hemoglobin 8.7, hematocrit 26, platelets are 187. Troponin I is elevated at 0.59, but this is decreased from the most recent previous troponin on 10/01/2016 which was 1.7. CHEST X-RAY: Portable chest x-ray shows cardiomegaly similar to previous study, mild vascular congestion which appears improved since previous study, cannot rule out small left pleural effusion. There is hyperinflation of lungs consistent with COPD. Extensive calcification of the thoracic aorta is noted. A hemodialysis catheter is in place with the tip in the appropriate location in the SVC. ASSESSMENT AND PLAN: 1. Dizziness and bradycardia: The patient's carvedilol will be held at this time. We will most likely restart it at a reduced dose of 12.5 mg twice daily on the days that the patient does not have dialysis and 12.5 mg q.p.m. on the days that she does. The patient's back pain is resolved at this time and may have been related to symptomatic hypotension. 2. Ischemic cardiomyopathy: I have reviewed the patient's coronary angiogram. She does in fact have very advanced coronary heart disease, with poor targets for either percutaneous coronary intervention or coronary artery bypass grafting surgery at the time of her last catheterization in late 2014. Provided the patient's symptoms remain stable, I feel the risks of repeat coronary angiography probably exceed the benefit. If the patient does not exhibit hemodynamic or electrical instability or has symptoms suggestive of a refractory angina, we will consider repeat coronary angiography. 3. Tobacco abuse: The patient was strongly encouraged to stop smoking, given her advanced chronic obstructive pulmonary disease and advanced coronary heart disease. She seems Consultation Report [address] [place]. [address] NAME: JEM HERNÁNDEZ MISHA : 44 STATUS : ADM IN PAT#: [id number] AGE: 75 ADM/REG DATE : 10/09/16 MR#: [id number] REPORT SERV DATE: 10/09/16 DICTATED BY: ANAYA PADILLA DATE: 10/09/16 REPORT STATUS : Draft TRANSCRIBED BY: MANSOOR DATE: 10/09/16 rather poorly motivated to do this, however. Thank you for allowing me to participate in the care of Ms Hernández. The Cardiology Service will continue to follow the patient closely during this hospitalization. [facility]/MANSOOR Anaya Padilla MD / [id number] CC: Jocelyn Pearson M.D.
--- NOTE | ~2016-10-09 | HP ---
History And Physical [facility] [address] [place]. [address] NAME: JEM PEREZ : 42 STATUS : ADM IN PAT#: [id number] AGE: 75 ADM/REG DATE : 10/09/16 MR#: [id number] REPORT SERV DATE: 10/09/16 DICTATED BY: KG MARIA JR DATE: 10/09/16 REPORT STATUS : Draft TRANSCRIBED BY: MANSOOR DATE: 10/09/16 DATE OF ADMISSION: 10/09/2016 CHIEF COMPLAINT: Dizziness. HISTORY OF PRESENT ILLNESS: A 75-year-old white female, brought to the hospital by EMS after complaining of dizziness. It is stated that in the field, she was bradycardic and treated with atropine. She chronically is on a beta addy as a part of her known cardiovascular disease management. She has chronic trouble with low back pain, diagnosed elsewhere, declines narcotic use because she does not like the way she feels taking the narcotics, and she just deals with the pain, she states she had an acute exacerbation of her chronic back pain yesterday, and thereafter she experienced some dizziness. She has ESRD. She is treated on Saturday, , Saturday schedule. She was at this hospital last week and was treated for what looks to be fluid overload, but I cannot confirm that her dry weight was lowered nor that any of her antihypertensives were reduced at the time of dismissal. In hospital, she is hypotensive and bradycardic with a heart rate less than 60, but she is awake, fully alert, cooperative, and in no distress. PAST MEDICAL HISTORY: 1. Extensive cardiovascular disease. Endovascular stenting times many. 2. Left upper extremity AV fistula. 3. Chronic obstructive pulmonary disease. 4. Tobacco habituation. 5. Ischemic cardiomyopathy. 6. Ejection fraction 30%. 7. Peripheral vascular disease. 8. 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 9. Statin intolerance. 10.Prior CVA with left-sided numbness. 11.Anxiety. 12.Depression. MEDICATIONS: Include albuterol, aspirin, amlodipine, carvedilol, clopidogrel, losartan, CoQ10, multivitamin, spironolactone, sublingual nitroglycerin, iron supplement, vitamin C. ALLERGIES: STATIN. SOCIAL HISTORY: Lives alone. Children participate in her care. Son is healthcare power of district attorney. Smokes. No alcohol or illicit drug use. FAMILY HISTORY: Cardiovascular disease, but no renal disease. Other than a grandmother who had "nephritis." History And Physical [address] [place]. [address] NAME: JEM PEREZ : 44 STATUS : ADM IN PAT#: [id number] AGE: 75 ADM/REG DATE : 10/09/16 MR#: [id number] REPORT SERV DATE: 10/09/16 DICTATED BY: KG MARIA JR DATE: 10/09/16 REPORT STATUS : Draft TRANSCRIBED BY: MODL DATE: 10/09/16 REVIEW OF SYSTEMS: Not otherwise reportable for head, neck, pulmonary, cardiac, GI, , musculoskeletal, neurological, integumentary, or psychiatric complaints. Other reviewed systems are negative. PHYSICAL EXAMINATION: GENERAL: Reasonably healthy-appearing female, who is awake, alert, oriented, and in no acute distress. She probably looks younger than her stated age of 77 years. Turgor is fair. Rash not observed. SKIN: Dry. No diaphoresis. No cyanosis. HEENT: Cranium normocephalic. Pupils are equally round. No scleral icterus. No periorbital edema. No nasal discharge. Oropharynx moist mucous membranes. NECK: No venous distention observed. Carotid bruits not heard. Trachea is midline. LUNGS: Clear to auscultation bilaterally, unlabored, no increased work of breathing, no accessory muscle use, no increased rate. She is wearing supplemental oxygen. HEART: Heart tones regular and bradycardic without audible rub or gallop. BREASTS: Not examined. ABDOMEN: Soft, doughy, nontender without palpable visceromegaly, without appreciable tenderness. Bowel sounds are present. Bruits are not heard. GENITALIA: Deferred. EXTREMITIES: A little dependent edema distally in the lower extremities. She has gotten some chronic venous changes of the distal lower extremities. The skin turgor is diminished and less elastic. NEUROLOGIC: Cognition and speech are normal. Moves extremities symmetrically, strength not otherwise tested and gait is not observed. PSYCHIATRIC: Affect is appropriate. She is cooperative and interacts well with examiner. LABORATORY DATA: The white count is 9000, hemoglobin 8.7, MCV 106, platelets 187. Sodium 140, potassium 4.8, chloride 101, CO2 of 21, BUN 86, creatinine 6.9, calcium 7.7, magnesium 2.0. Albumin 2.8. Liver function tests are satisfactory. Troponin noted at 0.5. Chest x-ray, reviewed by me. Normal cardiac silhouette, reasonably clear lung kraft. No appreciable effusion. EKG to be reviewed when located. ASSESSMENT: 1. Hypotension. Probably at least in part, mediated by volume status vasodilating blood pressure drugs, and bradycardia. 2. Hypotension. 3. End-stage renal disease. 4. Prior long-term documentation of elevated BNP values. PLAN: See order signed. Transferring out. History And Physical [address] [address] NAME: JEM PEREZ MISHA : 44 STATUS : ADM IN PAT#: [id number] AGE: 75 ADM/REG DATE : 10/09/16 MR#: [id number] REPORT SERV DATE: 10/09/16 DICTATED BY: KG MARIA JR DATE: 10/09/16 REPORT STATUS : Draft TRANSCRIBED BY: MANSOOR DATE: 10/09/16 DF/MANSOOR Kg Maria Jr, M.D. / [id number] CC: Jocelyn Lopez Jr, M.D.
--- NOTE | ~2016-10-09 | CN ---
Consultation Report [facility] [address] [place]. [address] NAME: JEM PEREZ : 44 STATUS : [facility] PAT#: [id number] AGE: 75 ADM/REG DATE : 10/09/16 MR#: [id number] REPORT SERV DATE: 10/10/16 DICTATED BY: BUBBA HERRERA DATE: 10/10/16 REPORT STATUS : Draft TRANSCRIBED BY: MODNila DATE: 10/10/16 CONSULTATION DATE OF CONSULTATION: HISTORY OF PRESENT ILLNESS: This is a 75-year-old patient of Dr. Hernandez, Nephrology, who was admitted yesterday after she came in with dizziness, and was found to be bradycardic and required atropine. The patient has been chronically on a beta addy for her cardiovascular disease. She has end-stage renal disease, and currently dialyzes Saturday, , Saturday. After she was admitted, she was found to be hypotensive and bradycardic, but was fully awake and alert and cooperative. Today, we are asked to see her for increasing shortness of breath and hypoxia. Of note, the patient did require BiPAP overnight. Her allergies are to statins, apparently they cause her kidneys to shut down. CURRENT MEDICATIONS: At home are carvedilol 25 mg twice a day, Norvasc 5 mg once a day, Nitrostat 0.4 mg sublingual p.r.n. for chest pain. She is on albuterol inhaler at home and Norvasc at 5 mg twice daily on non-dialysis days Saturday, Saturday, Saturday and Saturday. She is on 81 mg of aspirin. Carvedilol 25 mg at bedtime On Saturday, , and Saturday, and those are her dialysis days. Plavix 75 mg daily, coenzyme Q10 100 mg daily and then various supplements of garlic and iron, multivitamins, Cozaar 50 mg daily. She is on a tapering prednisone probably for COPD exacerbation, spironolactone 12.5 mg Saturday, Saturday, Saturday, and Saturday, and then albuterol nebulizer. PAST MEDICAL HISTORY: 1. Significant for COPD, degree of which is not known, but is assumed to be severe. 2. Ischemic cardiomyopathy with an ejection fraction of 30%. 3. COPD, ongoing tobacco use, does not use oxygen at home. 4. Hypertension. 5. Peripheral vascular disease of bilateral carotid endarterectomies. 6. Depression. 7. Anxiety. 8. History of CVA in the past. 9. Chronic lower back pain. SOCIAL HISTORY: The patient lives alone. She has a son, who is her power of corporate associate attorney as well as a daughter. She has been smoking at least a pack a day for sixty years and still smokes half pack a day on and off. Occasional alcohol use. 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 She is currently . FAMILY HISTORY: Significant for heart disease and end-stage renal disease. REVIEW OF SYSTEMS: Consultation Report [address] [place]. [address] NAME: JEM PEREZ : 44 STATUS : [facility]#: [id number] AGE: 75 ADM/REG DATE : 10/09/16 MR#: [id number] REPORT SERV DATE: 10/10/16 DICTATED BY: BUBBA HERRERA DATE: 10/10/16 REPORT STATUS : Draft TRANSCRIBED BY: MANSOOR DATE: 10/10/16 Biggest is complaint is one of shortness of breath. Dizziness is now resolved. Denies any chest pain, recent weight loss, poor appetite at home. No hemoptysis and the remainder of 10-point review of systems is unremarkable. PHYSICAL EXAMINATION: GENERAL: The patient is alert and awake, in no apparent distress at this time. VITAL SIGNS: Heart rate is 87, her blood pressure is 117/73, O2 saturation is 95% to 96% on 2 to 3 L. The patient is afebrile. SKIN: Warm and dry. HEENT: Head is atraumatic and normocephalic. Pupils are equal, round, and reactive to light and accommodation. Extraocular eye movements are intact. Sclerae anicteric. Conjunctivae pink. Nasal mucosa is within normal limits. Oral mucosa is slightly dry. NECK: Supple without JVD, lymphadenopathy, or thyromegaly. She has a Port-A-Cath in the left subclavian location. She has a left upper arm AV fistula. RESPIRATORY: Lungs are diminished at the bases with occasional crackles. No wheezing. CARDIAC: Reveals a regular rate and rhythm with a soft 2/6 systolic murmur heard at the left sternal border. BREASTS: Symmetrical without masses. ABDOMEN: Soft, nondistended. Bowel sounds are present, but diminished. EXTREMITIES: Without cyanosis, clubbing, or edema. Chronic venous changes in the lower extremities. NEUROLOGIC: Cranial nerves 2 through 12 are grossly intact. Motor and sensory are intact. LABORATORY DATA: Chest x-ray as of yesterday showed cardiomegaly, small left pleural effusion, pulmonary vascular congestion. Troponin is 0.054. No further lab work has been done today. BNP 2912. Sodium is 140, potassium is 4.8, chloride 21, bicarb 86, creatinine 6.89, calcium is 7.7. ASSESSMENT AND PLAN: 1. This is a 75-year-old patient with probable severe chronic obstructive pulmonary disease, although she has never had a formal evaluation of her lung status, which at some point would probably have to be done once she is stabilized, and in worse baseline condition at this time, we will continue bronchodilator protocol. Smoking cessation has been discussed with the patient. 2. Persistent shortness of breath. Has known history of coronary artery disease with previous echo showing an ejection fraction of 30%. Repeat echocardiogram has been ordered for today to see if there is any change. 3. Increasing shortness of breath, almost orthopnea at times, feels better on BiPAP. We will obtain a CTA of the chest throughout the possibility of pulmonary embolus. Also, assess fluid status and thoracentesis will be ordered if needed. The patient is currently on Plavix. Plavix will be held in preparation for a possible thoracentesis and this was discussed with Dr. Padilla, Cardiology. I also believe that, it appears that the patient may be end-stage on her pulmonary disease and so BiPAP may be something that she could use at home, but will need to further evaluate that after her volume status is stabilized and is at baseline. The patient herself says she does not Consultation Report [address] [place]. [address] NAME: CHRISJANINEJEM JO : 44 STATUS : [facility]#: [id number] AGE: 75 ADM/REG DATE : 10/09/16 MR#: [id number] REPORT SERV DATE: 10/10/16 DICTATED BY: BUBBA HERRERA DATE: 10/10/16 REPORT STATUS : Draft TRANSCRIBED BY: MANSOOR DATE: 10/10/16 use oxygen and uses her rescue inhaler very infrequently. If ever, she does use a nebulizer and she does not follow with a pulmonary physician. Thank you for your consultation. We will follow the patient with you. YNES/MANSOOR Bubba Herrera M.D. / [id number] CC: Shawnee Willis M.D.
[2016-10-09 05:37] LABS: BASOPHILS 0 %; EOSINOPHILS 0.9 %; EOSINOPHILS ABSOLUTE 0.09 10/3/uL (0.0-0.53); HEMATOCRIT 26.3 % (36.0-48.0); HEMOGLOBIN 8.7 g/dL (12.0-16.0); IMMATURE GRANULOCYTES 0.6 %; IMMATURE GRANULOCYTES ABSOLUTE 0.06 10/3/uL (0.0-0.11); LYMPHOCYTES 15.1 %; LYMPHOCYTES ABSOLUTE 1.47 10/3/uL (0.67-4.30); MEAN CORPUS HGB CONC 33.1 g/dL (32.0-36.0); MEAN CORPUSCULAR HEMOGLOB 35.2 pg (26.0-34.0); MEAN PLATELET VOLUME 10.8 fL (9.2-13.0); MONOCYTES 5.5 %; MONOCYTES ABSOLUTE 0.54 10/3/uL (0.21-1.20); NEUTROPHILS 77.9 %; NEUTROPHILS ABSOLUTE 7.58 10/3/uL (2.02-8.40); PLATELET COUNT 187 10/3/uL (150-400); RBC DISTRIBUTION WIDTH 18.3 % (12.0-16.0); RED CELL COUNT 2.47 10/6/uL (4.0-5.6); WHITE BLOOD CELLS 9.7 10/3/uL (4.5-10.5)
[2016-10-09 05:40] LABS: ER CBC TAT 0 Hrs 04 MinsNP; MANUAL DIFF NO %; MEAN CORPUSCULAR VOLUME 106.5 fL (80-100)
[2016-10-09 05:45] LABS: INTERNATIONAL NORMAL RATI 1.2 UNITS (-); PROTIME (NOT ORD) 14.6 SEC (12.0-14.5)
[2016-10-09 05:57] LABS: ALBUMIN 2.8 G/DL (3.5-5.0); CALCIUM, SERUM 7.7 MG/DL (8.5-10.4); CHLORIDE, SERUM 101 MMOL/L (96-112); CO2 (CARBON DIOXIDE) 21 MMOL/L (24-34); GLUCOSE, SERUM 105 MG/DL (60-99); POTASSIUM, SERUM 4.8 MMOL/L (3.5-5.3); SGOT(AST) 12 U/L (5-40); SGPT(ALT) 26 U/L (5-65); SODIUM, SERUM 140 MMOL/L (135-148); TOTAL BILIRUBIN 0.3 MG/DL (0-1.2)
[2016-10-09 06:02] LABS: ALKALINE PHOSPHATASE 100 U/L (45-117); BUN (BLOOD UREA NITROGEN) 86 MG/DL (6-23); CHEST PAIN PROFILE TAT 0 Hrs 29 Mins; CREATININE 6.89 MG/DL (0.55-1.02); DIRECT BILIRUBIN < 0.1 MG/DL (0.0-0.4); GFR AFRICAN AMERICAN 6 ML/MIN (>=60); GFR NON AFRICAN AMERICAN 5 ML/MIN (>=60); INDIRECT BILIRUBIN(NOT ORDER) 0.2 MG/DL (0.1-0.9); TOTAL PROTEIN 5.8 G/DL (6.0-8.5); TROPONIN I 0.59 NG/ML (<0.05)
[~2016-10-09 06:40] MED LIST changes: +LEVAQUIN750 MG; +P10
[2016-10-09] MEDS ORDERED: NORV5 PO ×2 (07:28→07:32)
[2016-10-09] MEDS ORDERED: COREG25 PO ×2 (07:28→07:34)
[2016-10-09] MEDS ORDERED: NITROSTAT0.4 MG SL (07:29)
[2016-10-09] MEDS ORDERED: VENTOLIN HFA INH (07:30)
[2016-10-09] MEDS ORDERED: ASAB PO (07:33)
[2016-10-09] MEDS ORDERED: CO Q-10100 MG PO (07:34)
[2016-10-09] MEDS ORDERED: GARLIC SUPPLEMENT PO (07:34)
[2016-10-09] MEDS ORDERED: PLAVIX PO (07:34)
[2016-10-09] MEDS ORDERED: IRON OTC PO (07:35)
[2016-10-09] MEDS ORDERED: LEVAQUIN750 MG PO (07:36)
[2016-10-09] MEDS ORDERED: CENTRUM PO (07:37)
[2016-10-09] MEDS ORDERED: COZ50 PO (07:37)
[2016-10-09] MEDS ORDERED: P10 (07:40)
[2016-10-09] MEDS ORDERED: SPIRO25 PO (07:41)
[2016-10-09] MEDS ORDERED: VITAMIN C PO (07:41)
[2016-10-09] MEDS ORDERED: ALBUTEROL0.083 % INH (07:42)
[2016-10-11 04:29] LABS: INTERNATIONAL NORMAL RATI 1.2 UNITS (-); PROTIME (NOT ORD) 15.1 SEC (12.0-14.5)
[2016-10-11 04:41] LABS: CHLORIDE, SERUM 105 MMOL/L (96-112); CO2 (CARBON DIOXIDE) 22 MMOL/L (24-34); GLUCOSE, SERUM 101 MG/DL (60-99); POTASSIUM, SERUM 4.9 MMOL/L (3.5-5.3); SODIUM, SERUM 142 MMOL/L (135-148)
[2016-10-11 04:44] LABS: BUN (BLOOD UREA NITROGEN) 61 MG/DL (6-23); CALCIUM, SERUM 8.7 MG/DL (8.5-10.4); CREATININE 6.04 MG/DL (0.55-1.02); GFR AFRICAN AMERICAN 7 ML/MIN (>=60); GFR NON AFRICAN AMERICAN 6 ML/MIN (>=60)
[2016-10-13 08:19] LABS: BASOPHILS 0.1 %; BASOPHILS ABSOLUTE 0.01 10/3/uL (0.0-0.16); EOSINOPHILS 3.6 %; EOSINOPHILS ABSOLUTE 0.37 10/3/uL (0.0-0.53); HEMATOCRIT 26.7 % (36.0-48.0); HEMOGLOBIN 8.8 g/dL (12.0-16.0); IMMATURE GRANULOCYTES 0.4 %; IMMATURE GRANULOCYTES ABSOLUTE 0.04 10/3/uL (0.0-0.11); LYMPHOCYTES 14.7 %; LYMPHOCYTES ABSOLUTE 1.49 10/3/uL (0.67-4.30); MEAN CORPUSCULAR HEMOGLOB 34.5 pg (26.0-34.0); MEAN CORPUSCULAR VOLUME 104.7 fL (80-100); MEAN PLATELET VOLUME 10.9 fL (9.2-13.0); MONOCYTES 8.3 %; MONOCYTES ABSOLUTE 0.84 10/3/uL (0.21-1.20); NEUTROPHILS 72.9 %; NEUTROPHILS ABSOLUTE 7.42 10/3/uL (2.02-8.40); PLATELET COUNT 181 10/3/uL (150-400); RBC DISTRIBUTION WIDTH 18.5 % (12.0-16.0); RED CELL COUNT 2.55 10/6/uL (4.0-5.6); WHITE BLOOD CELLS 10.2 10/3/uL (4.5-10.5)
[2016-10-13 08:20] LABS: MANUAL DIFF NO %
[2016-10-13 08:22] LABS: ALBUMIN 2.8 G/DL (3.5-5.0); CALCIUM, SERUM 8.9 MG/DL (8.5-10.4); CHLORIDE, SERUM 103 MMOL/L (96-112); CO2 (CARBON DIOXIDE) 24 MMOL/L (24-34); CREATININE 6.11 MG/DL (0.55-1.02); GFR AFRICAN AMERICAN 7 ML/MIN (>=60); GFR NON AFRICAN AMERICAN 6 ML/MIN (>=60); GLUCOSE, SERUM 103 MG/DL (60-99); PHOSPHORUS, SERUM 6.5 MG/DL (2.5-4.5); SODIUM, SERUM 141 MMOL/L (135-148)
[2016-10-13 08:23] LABS: BUN (BLOOD UREA NITROGEN) 57 MG/DL (6-23)
[2016-10-13 08:49] LABS: INTERNATIONAL NORMAL RATI 1.1 UNITS (-); PROTIME (NOT ORD) 13.7 SEC (12.0-14.5)
[2016-10-13 10:20] LABS: TROPONIN I 1.43 NG/ML (<0.05)
[2016-10-13 11:14] LABS: ALBUMIN 2.8 G/DL (3.5-5.0); CALCIUM, SERUM 8.1 MG/DL (8.5-10.4); CHLORIDE, SERUM 105 MMOL/L (96-112); CO2 (CARBON DIOXIDE) 26 MMOL/L (24-34); SODIUM, SERUM 143 MMOL/L (135-148)
[2016-10-13 11:16] LABS: BUN (BLOOD UREA NITROGEN) 16 MG/DL (6-23); CREATININE 1.99 MG/DL (0.55-1.02); GFR AFRICAN AMERICAN 28 ML/MIN (>=60); GFR NON AFRICAN AMERICAN 24 ML/MIN (>=60); GLUCOSE, SERUM 151 MG/DL (60-99); POTASSIUM, SERUM 3.7 MMOL/L (3.5-5.3)
[2016-10-13 18:38] LABS: POTASSIUM, SERUM 4.8 MMOL/L (3.5-5.3)
[2016-10-14 07:16] LABS: HEMOGLOBIN 10.4 g/dL (12.0-16.0); MEAN CORPUS HGB CONC 32.5 g/dL (32.0-36.0); MEAN CORPUSCULAR HEMOGLOB 34.6 pg (26.0-34.0); MEAN CORPUSCULAR VOLUME 106.3 fL (80-100); MEAN PLATELET VOLUME 11.4 fL (9.2-13.0); PLATELET COUNT 129 10/3/uL (150-400); RED CELL COUNT 3.01 10/6/uL (4.0-5.6); WHITE BLOOD CELLS 14.2 10/3/uL (4.5-10.5)
[2016-10-14 07:30] LABS: CALCIUM, SERUM 8.8 MG/DL (8.5-10.4); CHLORIDE, SERUM 97 MMOL/L (96-112)
[2016-10-14 07:33] LABS: BUN (BLOOD UREA NITROGEN) 23 MG/DL (6-23); CO2 (CARBON DIOXIDE) 20 MMOL/L (24-34); CREATININE 3.54 MG/DL (0.55-1.02); GFR AFRICAN AMERICAN 14 ML/MIN (>=60); GFR NON AFRICAN AMERICAN 12 ML/MIN (>=60); GLUCOSE, SERUM 98 MG/DL (60-99); PHOSPHORUS, SERUM 5.7 MG/DL (2.5-4.5); POTASSIUM, SERUM 5.9 MMOL/L (3.5-5.3); SODIUM, SERUM 135 MMOL/L (135-148)
[2016-10-14 07:57] LABS: MANUAL DIFF YES %
[2016-10-14 08:02] LABS: ANISOCYTOSIS 1+ (5-10/OIF) (0-5/OIF); BAND NEUTROPHILS 6 %; LYMPHOCYTES 14 %; LYMPHOCYTES ABSOLUTE (CALC) 1.99 10/3/uL (0.67-4.30); MACROCYTES 1+ (5-10/OIF) (0-5/OIF); MONOCYTES 8 %; MONOCYTES ABSOLUTE (CALC) 1.14 10/3/uL (0.21-1.20); NEUTROPHILS ABSOLUTE (CALC) 11.08 10/3/uL (2.02-8.40); PLATELET ESTIMATE SLT DEC (ADEQUATE); SEGMENTED NEUTROPHIL (0) 72 %; TOTAL NUCLEATED CELLS 100
[2016-10-14 11:25] LABS: CALCIUM, SERUM 8.7 MG/DL (8.5-10.4); CHLORIDE, SERUM 93 MMOL/L (96-112); CO2 (CARBON DIOXIDE) 21 MMOL/L (24-34); CPK 163 U/L (0-200); GLUCOSE, SERUM 96 MG/DL (60-99); SODIUM, SERUM 129 MMOL/L (135-148)
[2016-10-14 11:26] LABS: BUN (BLOOD UREA NITROGEN) 27 MG/DL (6-23); CREATININE 4.19 MG/DL (0.55-1.02); GFR AFRICAN AMERICAN 11 ML/MIN (>=60); GFR NON AFRICAN AMERICAN 10 ML/MIN (>=60); POTASSIUM, SERUM 6.1 MMOL/L (3.5-5.3)
[2016-10-14 17:54] LABS: CK-MB 2.2 NG/ML; CPK 125 U/L (0-200); TROPONIN I 3.09 NG/ML (<0.05)
[2016-10-15 04:53] LABS: PARTIAL THROMBO TIME 41.7 SEC (22.5-37.2)
[2016-10-15 05:11] LABS: HEMATOCRIT 31.3 % (36.0-48.0); HEMOGLOBIN 10.1 g/dL (12.0-16.0); MEAN CORPUS HGB CONC 32.3 g/dL (32.0-36.0); MEAN CORPUSCULAR HEMOGLOB 34.1 pg (26.0-34.0); MEAN CORPUSCULAR VOLUME 105.7 fL (80-100); MEAN PLATELET VOLUME 12.1 fL (9.2-13.0); NUCLEATED RED BLOOD CELLS 0.5 /100WBC (0-0); RBC DISTRIBUTION WIDTH 17.3 % (12.0-16.0); RED CELL COUNT 2.96 10/6/uL (4.0-5.6); WHITE BLOOD CELLS 10.2 10/3/uL (4.5-10.5)
[2016-10-15 05:12] LABS: MANUAL DIFF YES %; PLATELET COUNT 82 10/3/uL (150-400)
[2016-10-15 05:21] LABS: A/G RATIO 1.1 (0.7-1.9); ALBUMIN 3.2 G/DL (3.5-5.0); ALKALINE PHOSPHATASE 102 U/L (45-117); CALCIUM, SERUM 9.2 MG/DL (8.5-10.4); CHLORIDE, SERUM 93 MMOL/L (96-112); CO2 (CARBON DIOXIDE) 17 MMOL/L (24-34); PHOSPHORUS, SERUM 6.3 MG/DL (2.5-4.5); POTASSIUM, SERUM 5.2 MMOL/L (3.5-5.3); SGPT(ALT) 4505 U/L (5-65); SODIUM, SERUM 129 MMOL/L (135-148); TOTAL PROTEIN 6.2 G/DL (6.0-8.5)
[2016-10-15 05:22] LABS: BUN (BLOOD UREA NITROGEN) 19 MG/DL (6-23); CREATININE 3.36 MG/DL (0.55-1.02); GFR AFRICAN AMERICAN 15 ML/MIN (>=60); GFR NON AFRICAN AMERICAN 13 ML/MIN (>=60); GLUCOSE, SERUM 136 MG/DL (60-99); SGOT(AST) 4922 U/L (5-40); TOTAL BILIRUBIN 2.4 MG/DL (0-1.2)
[2016-10-15 05:53] LABS: ANISOCYTOSIS 1+ (5-10/OIF) (0-5/OIF); BAND NEUTROPHILS 3 %; EOSINOPHILS 1 %; LYMPHOCYTES 12 %; LYMPHOCYTES ABSOLUTE (CALC) 1.22 10/3/uL (0.67-4.30); MACROCYTES 1+ (5-10/OIF) (0-5/OIF); METAMYELOCYTES 1 %; MONOCYTES 3 %; MONOCYTES ABSOLUTE (CALC) 0.31 10/3/uL (0.21-1.20); NEUTROPHILS ABSOLUTE (CALC) 8.47 10/3/uL (2.02-8.40); PLATELET ESTIMATE DEC (ADEQUATE); SEGMENTED NEUTROPHIL (0) 80 %; TOTAL NUCLEATED CELLS 100
== END 2016-10-15 16:34 | disposition expired | DRG 308 ==
LOC: ER 06:40 → MIC 10-10 15:00 → 2SO 10-13 08:15 → MIC 10-13 09:03
PROVIDERS: Internal Medicine Cardiovascular Disease; Internal Medicine Nephrology; Internal Medicine Pulmonary Disease; Specialist
PROC: 5A1D60Z (ICD-10-PCS; principal; 2016-10-09)
PROC: 5A09357 Assistance with Respiratory Ventilation, Less than 24 Consecutive Hours, Continuous Positive Airway Pressure (ICD-10-PCS; 2016-10-10)
PROC: 02HV33Z Insertion of Infusion Device into Superior Vena Cava, Percutaneous Approach (ICD-10-PCS; 2016-10-13)
PROC: 4A02X4A Measurement of Cardiac Electrical Activity, Guidance, External Approach (ICD-10-PCS; 2016-10-13)
DX: R00.1 Bradycardia, unspecified (principal); J96.21 Acute and chronic respiratory failure with hypoxia; R57.9 Shock, unspecified; I50.23 Acute on chronic systolic (congestive) heart failure; J90 Pleural effusion, not elsewhere classified; N18.6 End stage renal disease; D69.6 Thrombocytopenia, unspecified; E87.2 Acidosis; I13.2 Hypertensive heart and chronic kidney disease with heart failure and with stage 5 chronic kidney disease, or end stage renal disease; E87.1 Hypo-osmolality and hyponatremia; Z51.5 Encounter for palliative care; J44.9 Chronic obstructive pulmonary disease, unspecified; E87.5 Hyperkalemia; I69.398 Other sequelae of cerebral infarction; M54.9 Dorsalgia, unspecified; I25.5 Ischemic cardiomyopathy; I73.9 Peripheral vascular disease, unspecified; R20.0 Anesthesia of skin; Z99.2 Dependence on renal dialysis; F41.9 Anxiety disorder, unspecified; Z79.899 Other long term (current) drug therapy; F17.210 Nicotine dependence, cigarettes, uncomplicated; Z95.5 Presence of coronary angioplasty implant and graft; Z79.82 Long term (current) use of aspirin; Z88.8 Allergy status to other drugs, medicaments and biological substances; F32.9 Major depressive disorder, single episode, unspecified; Z82.49 Family history of ischemic heart disease and other diseases of the circulatory system; R74.0 Nonspecific elevation of levels of transaminase and lactic acid dehydrogenase [LDH]; E83.39 Other disorders of phosphorus metabolism
CPT/HCPCS: 36415; 36569; 71010; 71275; 80048; 80053; 80069; 80076; 82272; 82550; 82553; 83735; 83880; 84100; 84132; 84484; 85025; 85610; 85730; 86850; 86900; 86901; 87641; 93005; 94640; 94660; 99285; A9270-GY; C1751; C8929; G0257; J0282; J2150; J2370; J2405; P9047; Q9957; Q9967